=== PATIENT | male | born 1955 | race Hispanic/Latino ===

== ENCOUNTER 2020-03-07 13:26 | Emergency (ER) | payer OTHER ==
[2020-03-07 14:10] LABS: RAPID GROUP A STREP NEGATIVE (NEGATIVE)
== END 2020-03-07 16:02 | disposition home or self-care (01) ==
LOC: EDH 13:26
DX: J10.1 Influenza due to other identified influenza virus with other respiratory manifestations (principal); R06.00 Dyspnea, unspecified; Z20.828 Contact with and (suspected) exposure to other viral communicable diseases
CPT/HCPCS: 71045; 87426; 87804 ×2; 87880; 93005; 99285; U0003

== ENCOUNTER → 2023-09-27 | Outpatient (CLI) | payer OTHER ==
[2023-09-27 11:41] LABS: ALBUMIN 4.4 g/dL (3.5-5.0); BILIRUBIN,TOTAL 0.6 mg/dL (0.2-1.0); CREATININE 0.9 mg/dL (0.5-1.3); POTASSIUM 4.3 mmol/L (3.5-5.1); TOTAL PROTEIN, SERUM 8.1 g/dL (6.0-8.3)
[2023-09-27 11:42] LABS: APPEARANCE,URINE CLEAR (CLEAR); BILIRUBIN,URINE NEGATIVE (NEGATIVE); COLOR,URINE LIGHT-YELLOW (YELLOW); GLUCOSE, URINE (UA) >=1000 mg/dL (NEGATIVE); KETONES,URINE 20 mg/dL (NEGATIVE); LEUKOCYTE ESTERASE ,URINE NEGATIVE Leu/uL (NEGATIVE); NITRATE,URINE NEGATIVE (NEGATIVE); OCCULT BLOOD,URINE NEGATIVE (NEGATIVE); PROTEIN,URINE NEGATIVE (NEGATIVE); UROBILINOGEN,URINE 0.2 mg/dL (0.2-1.0)
[2023-09-27 11:44] LABS: ADD UA MICROSCOPIC YES
[2023-09-27 11:45] LABS: MUCUS,URINE RARE LPF (None Seen); RBC,URINE 0-1 /HPF (0-1); WBC,URINE 0-1 /HPF (0-1)
== END | disposition home or self-care (01) ==
LOC: RAH 10:56
PROVIDERS: ATTEND Chiropractor
DX: I25.10 Atherosclerotic heart disease of native coronary artery without angina pectoris (principal); I51.7 Cardiomegaly; E11.9 Type 2 diabetes mellitus without complications
CPT/HCPCS: 36415; 80053; 81001; 93306

== ENCOUNTER → 2024-09-06 | Outpatient (CLI) | payer OTHER ==
[~2024-09-06] MED LIST: ASPI-1005 PO; ATOR10 PO; CLOP-31 PO; EMPA25TA PO; GLYB1.253 PO; Isosorbide Mono 30MG Sr Tab PO; METF-446 PO; PIOG45TA64 PO; RANO500T2 PO
--- NOTE | 2024-09-06 18:50 | HMCSR ---
APPROVED REPORT EXAM: Two-dimensional and M-mode echocardiogram with Doppler and color Doppler. INDICATION ICD: Atherosclerotic heart disease of [place] coronary artery without angina pectoris I25.10 2D Dimensions RVDd4.2 cmLVEF(%)66.0 (>50%)LVED Vol(simp.)116.0 mL IVSd0.9 (0.7-1.1cm)FS(%)37 %LVES Vol(simp.)41.0 mL LVDd5.4 (3.8-5.6cm)LA (2D)3.7 (1.6-4.0cm)LVEF(%, simp.)64 % PWd1.0 (0.7-1.1cm)Ao Root(2D)3.5 (2.0-3.7cm)LA ESV INDEX (BP)20.70 mL/m2 IVSs0.9 cmLVOT diam2.4 (1.8-2.4cm) LVDs3.4 (2.5-4.0cm) PWs1.2 cm M-Mode Dimensions EPSS0.8 cm LA (MM)4.4 (1.6-4.0cm) Ao Root(MM)3.8 (2.0-3.7cm) Aortic Valve AoV Vmax1.2 m/[place] Peak GR5.7 mmHgLVOT Vmax1.0 m/s AoV VTI0.3 mAo Mean GR3.2 mmHgLVOT VTI0.22 m DUY (VMAX)3.76 cm2Al P1/2T736 msAVA (VTI) 3.8 cm2 Mitral Valve MV E Vmax77.6 cm/sDECEL Fbtj256 ms MV A Vmax63.4 cm/sP 1/2 T60 ms E/A ratio1.2MVA (PHT)3.7 cm2 TDI E/E' Rssxfg06.6E/E' Luvspnm45.4 Medial E' Peak V5.32 cm/sLateral E' Peak V6.82 cm/s Pulmonary Valve PV Vmax1.2 m/sPV VTI0.23 mPV Mean GR3.1 mmHg PV Peak GR6.1 mmHg Tricuspid Valve TR Vmax2.2 m/sRVSP19.2 mmHg TR Peak GR19.2 mmHg Left Ventricle The left ventricle is normal size. There is normal LV segmental wall motion. There is normal left clint tricular wall thickness. LVEF is 60-65%. The left ventricular diastolic function is normal. Right Ventricle The right ventricle is normal size. The right ventricular systolic function is normal. Atria The left atrium size is normal. The right atrium size is mildly dilated. Aortic Valve The aortic valve is normal in structure. Trace aortic regurgitation. There is no aortic valvular sten osis. Mitral Valve The mitral valve is normal in structure. Mitral regurgitation is trace. There is no mitral valve sten osis. Tricuspid Valve The tricuspid valve is normal in structure. There is trace tricuspid valve regurgitation noted. Pulmonic Valve Pulmonic valve is not well visualized. There is no pulmonic valvular regurgitation. Great Vessels The aortic root is normal in size. The IVC is normal in size and collapses >50% with inspiration. Pericardium There is no pericardial effusion. Other Information Quality : Average Conclusion The left ventricle is normal size. LVEF is 60-65% with normal LV segmental wall motion. The left ventricular diastolic function is normal. The right ventricular systolic function is normal. Both atria are normal in size. No hemodynamically significant valvular abnormalities. There is no pericardial effusion.
== END | disposition home or self-care (01) ==
LOC: RAH 10:25
PROVIDERS: ATTEND Chiropractor
DX: I25.10 Atherosclerotic heart disease of native coronary artery without angina pectoris (principal); I51.7 Cardiomegaly
CPT/HCPCS: 93306